=== PATIENT | female | born 2005 | race Caucasian/White ===

== ENCOUNTER 2023-06-15 14:27 | Emergency (ER) | payer SELFPAY ==
[~2023-06-15] VITALS: Ht 172.7 cm; Wt 118.2 kg
[2023-06-15 14:38] VITALS: TEMP 98.4
[2023-06-15] MEDS ORDERED: NORCO 325 MG-51 TAB PO (18:30)
[2023-06-15] MEDS ORDERED: BACTRIM DS 8001 TAB PO (18:30)
[2023-06-15 18:40] VITALS: BP 127/89; PULSE 88
== END 2023-06-15 18:51 | disposition home or self-care (01) ==
LOC: COL.ER 14:27
DX: L05.01 Pilonidal cyst with abscess (principal); F17.290 Nicotine dependence, other tobacco product, uncomplicated